=== PATIENT | male | born 1980 | race Caucasian/White ===

== ENCOUNTER 2019-02-25 11:11 | Emergency (ER) | payer OTHER, SELFPAY ==
[2019-02-25 11:15] VITALS: BP 136/66; PULSE 66; RESP 18; TEMP 36.7; O2SAT 97; BMI 27.1
--- NOTE | 2019-02-25 11:18 | DI.RAD.S_ITS ---
PROCEDURE: XR FINGER RT MIN 2V INDICATIONS: injury TECHNIQUE: AP hand, 2 views of the middle (3rd) finger(s) acquired. COMPARISON: None. FINDINGS: Bones: No fractures or dislocations. No suspicious bony lesions. Soft tissues: No suspicious soft tissue calcifications. IMPRESSION: No acute osseous abnormality of the right 3rd digit. Dictated by: Eran Leonard M.D. on 02/25/2019 at 11:42 Approved by: Eran Leonard M.D. on 02/25/2019 at 11:44
--- NOTE | 2019-02-25 11:35 | ED.UPPEXIN ---
HPI - Extremity Injury (Upper) <DUNCAN Fontenot - Last Filed: 02/25/19 15:10> General Chief Complaint: Extremity Injury, Upper Stated Complaint: Crushed middle finger Time Seen by Provider: 02/25/19 11:14 Source: patient Mode of arrival: ambulatory Limitations: no limitations History of Present Illness HPI narrative: 30-year-old male with a history of hepatitis-B, presents emergency department today complaining of a constant 8/10 aching pain to right 3rd finger after coiled spring slipped and punctured the medial side of his finger about an hour ago. Patient states bleeding was controlled with a pressure dressing. Associated numbness to the tip of his finger, stated he felt a little dizzy and nauseated after the event which resolved few minutes after he lies down. Denies limited range of motion, hand pain and numbness, chest pain, dizziness at this time, shortness of breath, or abdominal pain. MD complaint: injury to: right Onset (ago): hour(s) Other injuries: none Handedness: right Place: home Severity: moderate Severity scale (1-10): 8 Relieving factors: none Exacerbating factors: movement of extremity Associated symptoms: numbness Related Data Allergies Allergy/AdvReac Type Severity Reaction Status Date / Time No Known Drug Allergies Allergy Verified 02/25/19 11:26 Review of Systems <DUNCAN Fontenot - Last Filed: 02/25/19 15:10> Review of Systems REVIEW OF SYSTEMS: GENERAL: Denies fever or chills. HENT: No head trauma, hearing loss or sore throat. EYES: No loss of vision. CARDIOVASCULAR: No chest pain or syncope. RESPIRATORY: No shortness of breath or cough. GASTROINTESTINAL: No abdominal pain. MUSCULOSKELETAL: Complaints of finger injury, see HPI. INTEGUMENTARY: Complains of puncture wound, see HPI. NEURO: Complains of numbness, see HPI. PSYCH: No behavior or mood changes. PFSH <DUNCAN Fontenot - Last Filed: 02/25/19 15:10> Medical History Hepatitis B (Chronic) Social History Smoking Status: Current every day smoker Social History Smoking Status: Current every day smoker Exam <Barbie Marie, TECHNICAL SALES CONSULTANT - Last Filed: 02/25/19 15:10> Initial Vital Signs Initial Vital Signs: Vital Signs Temperature 98.1 F 02/25/19 11:15 Pulse Rate 66 02/25/19 11:15 Respiratory Rate 18 02/25/19 11:15 Blood Pressure 136/66 02/25/19 11:15 Pulse Oximetry 97 02/25/19 11:15 PHYSICAL EXAMINATION: GENERAL: Alert and cooperative Answers questions promptly and appropriately. Vital signs noted. HENT: Normocephalic, atraumatic. EYES: Conjunctiva pink, sclera white, no periorbital swelling. CARDIOVASCULAR: CMS intact. RESPIRATORY: Normal respiratory rate, trachea midline, airway patent. No stridor, nasal flaring or accessory muscle use. GASTROINTESTINAL: Bowel sounds normoactive. Abdomen is soft and non-tender. No organomegaly. MUSCULOSKELETAL: Normal gait and coordination. Equal tone and mass bilaterally. EXTREMITIES: 0.5cm puncture wound medial aspect of right 3rd finger with a corresponding hematoma about0.5cm below puncture wound on palmar side of hand possibly indicating where the puncture stopped. 0.5x0.5cm subungual hematoma to medial aspect of nail. Finger appears swollen but not erythematous. Full range of motion of PIP and phalangeal metatarsal joint. Slightly decreased flexion to dip joint due to swelling and pain. Patient able to move finger in all directions against resistant. Finger and skin surrounding wound bed is excessively soiled with black dirt. Radial pulses equal bilaterally. SKIN: Warm, dry, soft, appropriate color for ethnicity. NEURO: Alert and Oriented X 3. Good coordination. No ataxia, or sensory deficits, or cognitive issues. PSYCH: Appropriate affect and mood. <Ceferino Kirkpatrick DO - Last Filed: 02/25/19 17:48> Initial Vital Signs Initial Vital Signs: Vital Signs Temperature 98.1 F 02/25/19 11:15 Pulse Rate 66 02/25/19 11:15 Respiratory Rate 18 02/25/19 11:15 Blood Pressure 136/66 02/25/19 11:15 Pulse Oximetry 97 02/25/19 11:15 Procedures <BarbieDUNCAN Arndt - Last Filed: 02/25/19 15:10> Nail Trephination Time out: Yes Location (finger): right Location (toes): third digit Sterile prep: chlorhexidine Method of drainage: nail cautery Procedure successful: Yes Patient tolerated procedure: well Nerve Block Nerve Block 1: Time out performed: Yes Local Anesthetic: lidocaine 1% and with bicarb Amount of anesthesia used (mL): 5 Side: right Nerve Blocks: digital Procedure Successful: Yes Patient Tolerated Procedure: Well Complications: none Course <DUNCAN Fontenot - Last Filed: 02/25/19 15:10> Course Narrative: Patient's finger was numbed with a nerve block, extensive scrubbing and washing to area and wound was done with water, chlorhexidine, insert saline to remove all debris in reduce infection. Nail trephination was performed to relieve hematoma under nail bed. Orders Ordered: ED Orders 02/25/19 11:18 XR finger RT min 2V Stat Discontinued Medications Diphtheria/Tetanus/Acell Pertussis (Adacel) 0.5 ml IM .ONCE ONE Stop: 02/25/19 11:27 Last Admin: 02/25/19 11:44 Dose: 0.5 ml Ibuprofen (Advil) 800 mg PO NOW ONE Stop: 02/25/19 11:50 Last Admin: 02/25/19 11:54 Dose: 800 mg Reevaluation(s) Reevaluation #1: Patient re-evaluated after nail trephination while fingers so mom from nerve block patient stated that he felt a relief of pressure after procedure. Denies any pain, tolerated procedure well. Consultations Consultation #1: Patient staffed with Dr. Kirkpatrick. Vital Signs - 8 hr 02/25/19 11:15 02/25/19 13:04 Temperature 98.1 F Pulse Rate 66 78 Respiratory Rate 18 16 Blood Pressure 136/66 137/86 Pulse Oximetry 97 97 <Ceferino Kirkpatrick DO - Last Filed: 02/25/19 17:48> Orders Ordered: ED Orders 02/25/19 11:18 XR finger RT min 2V Stat Discontinued Medications Diphtheria/Tetanus/Acell Pertussis (Adacel) 0.5 ml IM .ONCE ONE Stop: 02/25/19 11:27 Last Admin: 02/25/19 11:44 Dose: 0.5 ml Ibuprofen (Advil) 800 mg PO NOW ONE Stop: 02/25/19 11:50 Last Admin: 02/25/19 11:54 Dose: 800 mg Vital Signs - 8 hr 02/25/19 11:15 02/25/19 13:04 Temperature 98.1 F Pulse Rate 66 78 Respiratory Rate 18 16 Blood Pressure 136/66 137/86 Pulse Oximetry 97 97 MDM - Extremity Injury (Upper) <DUNCAN Fontenot - Last Filed: 02/25/19 15:10> Medical Records Attestation: I reviewed the patient's medical records. Lab Data Attestation: I reviewed the patient's lab results. Imaging Data Right 3rd XR: Radiologist's impression: [address] [address] XRay Report Signed Patient: Chandler Milian JMR#: [id number] : 1980Acct:[id number] Age/Sex: 38 / MDate of Service: 02/25/19 Loc: ED Accession Number: [id number] Procedure: XR finger RT min 2V Ordering Provider: Barbie Marie PROCEDURE: XR FINGER RT MIN 2V INDICATIONS: injury TECHNIQUE: AP hand, 2 views of the middle (3rd) finger(s) acquired. COMPARISON: None. FINDINGS: Bones: No fractures or dislocations. No suspicious bony lesions. Soft tissues: No suspicious soft tissue calcifications. IMPRESSION: No acute osseous abnormality of the right 3rd digit. Dictated by: Eran Leonard M.D. on 02/25/2019 at 11:42 Approved by: Eran Leonard M.D. on 02/25/2019 at 11:44 [facility] Narrative Medical decision making narrative: Very low for suspicion of fractures and foreign body due to negative x-ray. Suspect this is puncture wound due to exam and history. No sutures were placed as there is little skin to suture together as well as leaving the wound open can prevent infection. Suspected subungual hematoma as nail trephination relieved about 1.5 cc of blood. Antibiotics were not indicated as research has shown they do not help with prevent infection if the wound is cleaned appropriately. Strict return precautions given and follow-up instructions discussed. Discharge Plan Departure Patient Disposition: Home Clinical Impression: Puncture wound Contusion of finger of right hand Qualifiers: Encounter type: initial encounter Finger: middle finger Damage to nail status: without damage Qualified Code(s): S60.031A - Contusion of right middle finger without damage to nail, initial encounter Discharge Date/Time: 02/25/19 13:08 Interventions: ED Discharge Assessment Last Done: 02/25/19 13:04 Instructions: DI for Puncture Wound, DI for Nail Bed Injury Activity Restrictions/Additional Instructions: Thank you for entrusting me with your care today. As discussed, x-ray is negative for foreign bodies or fractures. It is likely that your pain in your finger is caused by a hematoma from the puncture wound. Please keep the dressing on for 24 hours, follow up with her primary care provider in the next coming days if symptoms do not resolve. Do not soak your wound in any water, you may wash your wound briefly, please keep your wound covered for the next week. Return to the emergency department or urgent care if he develops signs of infection such as increased redness, significant pain, or pus. <Ceferino Kirkpatrick DO - Last Filed: 02/25/19 17:48> Cosign ED Attending Panda Attestation: I was immediately available in the department for consultation. Documentation has been reviewed. I agree with assessment and plan.
[2019-02-25] MEDS: TET,DIPH,PERTUSS(ACELL),VAC/PF 0.5 ML SYRINGE IM (11:44)
--- NOTE | 2019-02-25 11:47 | ED_ITS ---
HPI - Extremity Injury (Upper) <DUNCAN Fontenot - Last Filed: 02/25/19 15:10> General Chief Complaint: Extremity Injury, Upper Stated Complaint: Crushed middle finger Time Seen by Provider: 02/25/19 11:14 Source: patient Mode of arrival: ambulatory Limitations: no limitations History of Present Illness HPI narrative: 30-year-old male with a history of hepatitis-B, presents emergency department today complaining of a constant 8/10 aching pain to right 3rd finger after coiled spring slipped and punctured the medial side of his finger about an hour ago. Patient states bleeding was controlled with a pressure dressing. Associated numbness to the tip of his finger, stated he felt a little dizzy and nauseated after the event which resolved few minutes after he lies down. Denies limited range of motion, hand pain and numbness, chest pain, dizziness at this time, shortness of breath, or abdominal pain. MD complaint: injury to: right Onset (ago): hour(s) Other injuries: none Handedness: right Place: home Severity: moderate Severity scale (1-10): 8 Relieving factors: none Exacerbating factors: movement of extremity Associated symptoms: numbness Related Data Allergies Allergy/AdvReac Type Severity Reaction Status Date / Time No Known Drug Allergies Allergy Verified 02/25/19 11:26 Review of Systems <DUNCAN Fontenot - Last Filed: 02/25/19 15:10> Review of Systems REVIEW OF SYSTEMS: GENERAL: Denies fever or chills. HENT: No head trauma, hearing loss or sore throat. EYES: No loss of vision. CARDIOVASCULAR: No chest pain or syncope. RESPIRATORY: No shortness of breath or cough. GASTROINTESTINAL: No abdominal pain. MUSCULOSKELETAL: Complaints of finger injury, see HPI. INTEGUMENTARY: Complains of puncture wound, see HPI. NEURO: Complains of numbness, see HPI. PSYCH: No behavior or mood changes. PFSH <DUNCAN Fontenot - Last Filed: 02/25/19 15:10> Medical History Hepatitis B (Chronic) Social History Smoking Status: Current every day smoker Social History Smoking Status: Current every day smoker Exam <aBrbie Marie, BIOMEDICAL EQUIPMENT TECH - Last Filed: 02/25/19 15:10> Initial Vital Signs Initial Vital Signs: Vital Signs Temperature 98.1 F 02/25/19 11:15 Pulse Rate 66 02/25/19 11:15 Respiratory Rate 18 02/25/19 11:15 Blood Pressure 136/66 02/25/19 11:15 Pulse Oximetry 97 02/25/19 11:15 PHYSICAL EXAMINATION: GENERAL: Alert and cooperative Answers questions promptly and appropriately. Vital signs noted. HENT: Normocephalic, atraumatic. EYES: Conjunctiva pink, sclera white, no periorbital swelling. CARDIOVASCULAR: CMS intact. RESPIRATORY: Normal respiratory rate, trachea midline, airway patent. No stridor, nasal flaring or accessory muscle use. GASTROINTESTINAL: Bowel sounds normoactive. Abdomen is soft and non-tender. No organomegaly. MUSCULOSKELETAL: Normal gait and coordination. Equal tone and mass bilaterally. EXTREMITIES: 0.5cm puncture wound medial aspect of right 3rd finger with a corresponding hematoma about0.5cm below puncture wound on palmar side of hand possibly indicating where the puncture stopped. 0.5x0.5cm subungual hematoma to medial aspect of nail. Finger appears swollen but not erythematous. Full range of motion of PIP and phalangeal metatarsal joint. Slightly decreased flexion to dip joint due to swelling and pain. Patient able to move finger in all directions against resistant. Finger and skin surrounding wound bed is excessively soiled with black dirt. Radial pulses equal bilaterally. SKIN: Warm, dry, soft, appropriate color for ethnicity. NEURO: Alert and Oriented X 3. Good coordination. No ataxia, or sensory deficits, or cognitive issues. PSYCH: Appropriate affect and mood. <Ceferino Kirkpatrick DO - Last Filed: 02/25/19 17:48> Initial Vital Signs Initial Vital Signs: Vital Signs Temperature 98.1 F 02/25/19 11:15 Pulse Rate 66 02/25/19 11:15 Respiratory Rate 18 02/25/19 11:15 Blood Pressure 136/66 02/25/19 11:15 Pulse Oximetry 97 02/25/19 11:15 Procedures <BarbieDUNCAN Arndt - Last Filed: 02/25/19 15:10> Nail Trephination Time out: Yes Location (finger): right Location (toes): third digit Sterile prep: chlorhexidine Method of drainage: nail cautery Procedure successful: Yes Patient tolerated procedure: well Nerve Block Nerve Block 1: Time out performed: Yes Local Anesthetic: lidocaine 1% and with bicarb Amount of anesthesia used (mL): 5 Side: right Nerve Blocks: digital Procedure Successful: Yes Patient Tolerated Procedure: Well Complications: none Course <DUNCAN Fontenot - Last Filed: 02/25/19 15:10> Course Narrative: Patient's finger was numbed with a nerve block, extensive scrubbing and washing to area and wound was done with water, chlorhexidine, insert saline to remove all debris in reduce infection. Nail trephination was performed to relieve hematoma under nail bed. Orders Ordered: ED Orders 02/25/19 11:18 XR finger RT min 2V Stat Discontinued Medications Diphtheria/Tetanus/Acell Pertussis (Adacel) 0.5 ml IM .ONCE ONE Stop: 02/25/19 11:27 Last Admin: 02/25/19 11:44 Dose: 0.5 ml Ibuprofen (Advil) 800 mg PO NOW ONE Stop: 02/25/19 11:50 Last Admin: 02/25/19 11:54 Dose: 800 mg Reevaluation(s) Reevaluation #1: Patient re-evaluated after nail trephination while fingers so mom from nerve block patient stated that he felt a relief of pressure after procedure. Denies any pain, tolerated procedure well. Consultations Consultation #1: Patient staffed with Dr. Kirkpatrick. Vital Signs - 8 hr 02/25/19 11:15 02/25/19 13:04 Temperature 98.1 F Pulse Rate 66 78 Respiratory Rate 18 16 Blood Pressure 136/66 137/86 Pulse Oximetry 97 97 <Ceferino Kirkpatrick DO - Last Filed: 02/25/19 17:48> Orders Ordered: ED Orders 02/25/19 11:18 XR finger RT min 2V Stat Discontinued Medications Diphtheria/Tetanus/Acell Pertussis (Adacel) 0.5 ml IM .ONCE ONE Stop: 02/25/19 11:27 Last Admin: 02/25/19 11:44 Dose: 0.5 ml Ibuprofen (Advil) 800 mg PO NOW ONE Stop: 02/25/19 11:50 Last Admin: 02/25/19 11:54 Dose: 800 mg Vital Signs - 8 hr 02/25/19 11:15 02/25/19 13:04 Temperature 98.1 F Pulse Rate 66 78 Respiratory Rate 18 16 Blood Pressure 136/66 137/86 Pulse Oximetry 97 97 MDM - Extremity Injury (Upper) <DUNCAN Fontenot - Last Filed: 02/25/19 15:10> Medical Records Attestation: I reviewed the patient's medical records. Lab Data Attestation: I reviewed the patient's lab results. Imaging Data Right 3rd XR: Radiologist's impression: [address] [address] XRay Report Signed Patient: Chandler Milian JMR#: [id number] : 1980Acct:[id number] Age/Sex: 38 / MDate of Service: 02/25/19 Loc: ED Accession Number: [id number] Procedure: XR finger RT min 2V Ordering Provider: Barbie Marie PROCEDURE: XR FINGER RT MIN 2V INDICATIONS: injury TECHNIQUE: AP hand, 2 views of the middle (3rd) finger(s) acquired. COMPARISON: None. FINDINGS: Bones: No fractures or dislocations. No suspicious bony lesions. Soft tissues: No suspicious soft tissue calcifications. IMPRESSION: No acute osseous abnormality of the right 3rd digit. Dictated by: Eran Leonard M.D. on 02/25/2019 at 11:42 Approved by: Eran Leonard M.D. on 02/25/2019 at 11:[address] [facility] Narrative Medical decision making narrative: Very low for suspicion of fractures and foreign body due to negative x-ray. Suspect this is puncture wound due to exam and history. No sutures were placed as there is little skin to suture together as well as leaving the wound open can prevent infection. Suspected subungual hematoma as nail trephination relieved about 1.5 cc of blood. Antibiotics were not indicated as research has shown they do not help with prevent infection if the wound is cleaned appropriately. Strict return precautions given and follow- up instructions discussed. Discharge Plan Departure Patient Disposition: Home Clinical Impression: Puncture wound Contusion of finger of right hand Qualifiers: Encounter type: initial encounter Finger: middle finger Damage to nail status: without damage Qualified Code(s): S60.031A - Contusion of right middle finger without damage to nail, initial encounter Discharge Date/Time: 02/25/19 13:08 Interventions: ED Discharge Assessment Last Done: 02/25/19 13:04 Instructions: DI for Puncture Wound, DI for Nail Bed Injury Activity Restrictions/Additional Instructions: Thank you for entrusting me with your care today. As discussed, x-ray is negative for foreign bodies or fractures. It is likely that your pain in your finger is caused by a hematoma from the puncture wound. Please keep the dressing on for 24 hours, follow up with her primary care provider in the next coming days if symptoms do not resolve. Do not soak your wound in any water, you may wash your wound briefly, please keep your wound covered for the next week. Return to the emergency department or urgent care if he develops signs of infection such as increased redness, significant pain, or pus. <Ceferino Kirkpatrick DO - Last Filed: 02/25/19 17:48> Cosign ED Attending Panda Attestation: I was immediately available in the department for consultation. Documentation has been reviewed. I agree with assessment and plan.
[2019-02-25] MEDS: IBUPROFEN 400 MG TABLET 800 MG PO (11:54)
[2019-02-25 13:04] VITALS: BP 137/86; PULSE 78; RESP 16; O2SAT 97
== END 2019-02-25 13:08 | disposition home or self-care (01) ==
PROVIDERS: Emergency Provider Nurse Practitioner
DX: S61.232A Puncture wound without foreign body of right middle finger without damage to nail, initial encounter (principal); W26.8XXA Contact with other sharp object(s), not elsewhere classified, initial encounter; Y99.0 Civilian activity done for income or pay; Z23 Encounter for immunization
CPT/HCPCS: 11740; 64450; 73140; 90471; 99282; 99283; 90715